=== PATIENT | male | born 1970 | race African-American/Black ===

== ENCOUNTER 2021-07-22 00:47 | Emergency (ER) | payer OTHER ==
[~2021-07-22] VITALS: Ht 190.5 cm; Wt 204.1 kg
[2021-07-22 02:17] LABS: ABSOLUTE EOSINOPHILS 0.1 thou/uL (0.0-0.7); ABSOLUTE MONOCYTES 0.8 thou/uL (0.0-1.2); NUCLEATED RBCS 0 /100WBC; WBC 8.8 thou/uL (4.0-11.0)
[2021-07-22 02:19] LABS: ABSOLUTE BASOPHILS 0.1 thou/uL (0.0-0.2)
[2021-07-22 02:20] LABS: CALCIUM 8.4 mg/dL (8.5-10.1); POTASSIUM 3.7 mmol/L (3.5-5.1)
[2021-07-22 02:23] LABS: APTT 27.1 Seconds (25.0-31.3)
[2021-07-22 02:25] LABS: ALBUMIN 3.2 g/dL (3.4-5.0); TOTAL BILIRUBIN 0.3 mg/dL (<0.1-1.0); TOTAL PROTEIN 7.8 g/dL (6.4-8.2)
[2021-07-22 02:28] LABS: ABSOLUTE LYMPHOCYTES 1.4 thou/uL (0.8-5.3); ABSOLUTE NEUTROPHILS 6.6 thou/uL (1.6-8.1); BASOPHILS 0.7 %; EOSINOPHILS 0.7 %; HEMATOCRIT 38.7 % (42.0-52.0); HEMOGLOBIN 12.6 gm/dL (14.0-18.0); LYMPHOCYTES 15.6 %; MCH 27.7 pg (26.0-34.0); MCHC 32.5 g/dL (28.0-37.0); MCV 85.1 fL (80.0-100.0); MONOCYTES 8.8 %; MPV 7.4 fl. (7.2-11.1); PLATELET COUNT* 304 thou/uL (150-400); POLYS 74.2 %; RBC 4.55 mil/uL (4.50-6.00); RDW-CV 15.5 % (10.5-14.5)
[2021-07-22] MEDS ORDERED: NORVASC5 MG PO (05:47)
[2021-07-22] MEDS ORDERED: ZYPREXA 5 MG TAB5 MG PO (05:47)
[2021-07-22] MEDS ORDERED: HYDROCHLOROTHIA25 M1 PO (05:47)
[2021-07-22 06:16] VITALS: BP 185/98
--- NOTE | 2021-07-22 09:59 | EKG ---
[place] [address] ELECTROCARDIOGRAM REPORT Name: ANDERSON MILLER Room: [facility]#: [id number] Admission: 07/22/21 Attend Phys: Discharge: 07/22/21 Date of : 70 Date of Service: 07/22/21 0052 Report #: [id number] THIS REPORT FOR: //name// [facility] ED Test Date: 2021-07-22 Test Time: 00:52:16 Pat Name: ANDERSON MILLER Department: Room: Gender: Housekeeper Supervisor: : 1970 Requested By: Eliza Foss Order Number: [id number] MD: Anthony Melton Measurements Intervals [place] Rate: 92 P: 62 TX: 186 QRS: 8 QRSD: 106 T: 45 QT: 381 QTc: 472 Interpretive Statements Sinus rhythm Left atrial enlargement RSR' in V1 or V2, probably normal variant Left ventricular hypertrophy Nonspecific T abnormalities, lateral leads Baseline wander in lead(s) I,V2,V4 No previous ECG available for comparison Electronically Signed On 07-22-2021 9:59:23 JAIL MANAGER by Anthony Melton [email or web address] <ELECTRONICALLY SIGNED> By: Anthony Melton MD, FAC 07/22/21 0959 Anthony Melton MD, FAC /EPI
== END 2021-07-22 06:19 | disposition home or self-care (01) ==
LOC: M.ERS 00:47
PROVIDERS: Personal Emergency Response Attendant
DX: I10 Essential (primary) hypertension (principal); R07.89 Other chest pain; F20.9 Schizophrenia, unspecified; E66.9 Obesity, unspecified